=== PATIENT | male | born 2000 | race African-American/Black ===

== ENCOUNTER 2018-10-28 17:38 | Emergency (ER) | payer OTHER ==
[2018-10-28 17:50] VITALS: TEMP 98.6; BMI 25.8
--- NOTE | 2018-10-28 18:00 | PDOC ---
History of Present Illness - General History Source: Patient Exam Limitations: No Limitations - History of Present Illness Initial Comments: 10/28/18 18:05 Patient is a 18 year old male with no significant past medical history who presents to the ED with complaints of chest palpitations that began just prior to ED arrival. Patient reports vaping marijuana infused wax when he began to experiencing sudden chest palpitations. As per staff patient made his initial symptoms known but did state he was smoking, and was taken to the [facility] who then advised the patient to be taken to the ED for further evaluation. Patient reports vaping marijuana and tobacco on several occasions in the past but states he has never experienced this symptoms before. Denies chest pain, Sob. Denies nausea, vomiting. Denies fevers, chills. Denies contact with sick individuals, out of state travelling. Denies any other symptoms. Allergies: None Social history: Lives at [facility]. Current smoker. Current marijuana use. No alcohol use. Surgical history: None PMD: None Adult ROS CONSTITUTIONAL: Absent: Fever, Chills, Diaphoresis, Generalized Weakness, Malaise, Loss of Appetite HEENT: Absent: Rhinorrhea, Nasal Congestion, Throat Pain, Throat Swelling, Difficulty Swallowing, Mouth Swelling, Ear Pain, Eye Pain, Visual Changes CARDIOVASCULAR: +chest palpitations. Absent: Chest Pain, Syncope, Irregular Heart Rate, Lightheadedness, Peripheral Edema RESPIRATORY: Absent: Cough, Shortness of Breath, SOB with Exertion, Orthopnea, Wheezing, Stridor, Hemoptysis GASTROINTESTINAL: Absent: Abdominal pain, Abdominal Distension, Nausea, Vomiting, Diarrhea, Constipation, Melena, Hematochezia GENITOURINARY: Absent: Dysuria, Frequency, Urgency, Hesitancy, Flank Pain, Genital Pain MUSCULOSKELETAL: Absent: Myalgia, Arthralgia, Joint Swelling, Back pain, Neck Pain SKIN: Absent: Rash, Itching, PalloR HEMATOLOGIC/IMMUNOLOGIC: Absent: Easy Bleeding, Easy Bruising, Lymphadenopathy, Frequent infections ENDOCRINE: Absent: Unexplained Weight Gain, Unexplained Weight Loss, Heat Intolerance, Cold Intolerance NEUROLOGIC: Absent: Headache, Focal Weakness, Paresthesias, Vertigo, Lightheadedness, Unsteady Gait, Seizure, Mental Status Changes, Incontinence PSYCHIATRIC: Absent: Anxiety, Depression Adult PE GENERAL: The patient is awake, alert, and fully oriented, in no acute distress. HEAD: Normal with no signs of trauma. EYES: Pupils equal, round and reactive to light, extraocular movements intact, sclera anicteric, conjunctiva clear. ENT: Ears normal, nares patent, oropharynx clear without exudates. Moist mucous membranes. NECK: Normal range of motion, supple without lymphadenopathy, JVD, or masses. LUNGS: Breath sounds equal, clear to auscultation bilaterally. No wheezes, and no crackles. HEART: Regular rate and rhythm, normal S1 and S2 without murmur, rub or gallop. ABDOMEN: Soft, nontender, normoactive bowel sounds. No guarding, no rebound. No masses. EXTREMITIES: Normal range of motion, no edema. No clubbing or cyanosis. No cords , erythema, or tenderness. NEUROLOGICAL: Cranial nerves II through XII grossly intact. Normal speech, normal gait. PSYCH: Normal mood, normal affect. SKIN: Warm, Dry, normal turgor, no rashes or lesions noted. <Mikal Arredondo - Last Filed: 10/28/18 18:05> <Hermelindo Mukherjee - Last Filed: 10/28/18 18:25> - General Chief Complaint: Palpitations Stated Complaint: SENT FOR EVALUATION RAPID HEART BEAT WHILE SMOKIN Time Seen by Provider: 10/28/18 17:44 Past History <Mikal Arredondo - Last Filed: 10/28/18 18:05> - Past Medical History COPD: No Other medical history: DENIES - Immunization History Immunization Up to Date: Yes - Suicide/Smoking/Psychosocial Hx Smoking History: Current every day smoker Information on smoking cessation initiated: Yes Hx Alcohol Use: No Drug/Substance Use Hx: No Substance Use Type: Marijuana <Hermelindo Mukherjee - Last Filed: 10/28/18 18:25> - Past Medical History Allergies/Adverse Reactions: Allergies Allergy/AdvReac Type Severity Reaction Status Date / Time No Known Allergies Allergy Verified 10/28/18 17:50 Home Medications: Ambulatory Orders NK [No Known Home Medication] 10/28/18 *Physical Exam - Vital Signs Last Vital Signs Temp Pulse Resp BP Pulse Ox 98.6 F 96 H 16 122/67 100 10/28/18 17:40 10/28/18 17:40 10/28/18 17:40 10/28/18 18:02 10/28/18 17:40 <Mikal Arredondo - Last Filed: 10/28/18 18:05> - Vital Signs Last Vital Signs Temp Pulse Resp BP Pulse Ox 98.6 F 96 H 16 122/67 100 10/28/18 17:40 10/28/18 17:40 10/28/18 17:40 10/28/18 17:40 10/28/18 17:40 <Hermelindo Mukherjee - Last Filed: 10/28/18 18:25> Moderate Sedation - Procedure Monitoring Vital Signs: Procedure Monitoring Vital Signs Temperature 98.6 F 10/28/18 17:40 Pulse Rate 96 H 10/28/18 17:40 Respiratory Rate 16 10/28/18 17:40 Blood Pressure 122/67 10/28/18 18:02 O2 Sat by Pulse Oximetry (%) 100 10/28/18 17:40 <Mikal Arredondo - Last Filed: 10/28/18 18:05> - Procedure Monitoring Vital Signs: Procedure Monitoring Vital Signs Temperature 98.6 F 10/28/18 17:40 Pulse Rate 96 H 10/28/18 17:40 Respiratory Rate 16 10/28/18 17:40 Blood Pressure 122/67 10/28/18 17:40 O2 Sat by Pulse Oximetry (%) 100 10/28/18 17:40 <Hermelindo Mukherjee - Last Filed: 10/28/18 18:25> Heart Score/ECG Review - ECG Impressions Comment:: 10/28/18 18:19 Twelve-lead EKG shows normal sinus rhythm at a rate of 95 bpm. The axis is normal. The intervals are normal. There is no acute ST elevation or depression. Impression: Normal 12-lead EKG <Hermelindo Mukherjee - Last Filed: 10/28/18 18:25> Medical Decision Making - Medical Decision Making 10/28/18 18:21 18-year-old male presents complaining of palpitations while taping marijuana today. He states he was taping and felt sudden onset of his heart beating fast and jumping out of his chest. He was taken to the [facility] at the facility where he lives. His heart rate was noted to be in the 148-153 range. By the time of her arrival in the ED, his heart rate had decreased to 95. He denied any complaints. There was no chest pain, shortness of breath, or other symptoms. No dizziness or syncope. On examination, the lungs were clear. The cardiac exam was normal with normal S1 and S2 without murmurs. Extremities were warm and well perfused. Skin was without diaphoresis. Twelve-lead EKG showed normal sinus rhythm at 95 with no acute ischemic changes. Patient was observed in the ED and repeat vital signs were normal with a blood pressure of 115/55 and a heart rate of 82, with an oxygen saturation of 100% on room air. Impression: Palpitations in the setting of drug use. Spontaneously resolved. Currently asymptomatic. Plan: Discharged in custody of staff from the [facility]. <Hermelindo Mukherjee - Last Filed: 10/28/18 18:25> *DC/Admit/Observation/Transfer - Attestations Scribe Attestion: 10/28/18 18:06 Documentation prepared by Mikal Arredondo, acting as medical sales consultant for Hermelindo Mukherjee MD. <Mikal Arredondo - Last Filed: 10/28/18 18:05> - Discharge Dispostion Decision to Admit order: No - Attestations Physician Attestion: 10/28/18 18:25 The scribe's documentation has been prepared under my direction and personally reviewed by me in its entirety. I have confirmed that the note above accurately reflects all work, treatment, procedures, and medical decision- making performed by me. <Hermelindo Mukherjee - Last Filed: 10/28/18 18:25> Diagnosis at time of Disposition: Palpitations, Marijuana use - Discharge Dispostion Disposition: HOME Condition at time of disposition: Improved - Patient Instructions Printed Discharge Instructions: DI for Palpitations Additional Instructions: Today you were evaluated for heart palpitations in the setting of vaping marijuana. Drugs purchased on the street may be laced with other substances and can cause many different symptoms. It is recommended that you avoid drug use. Follow-up with the doctor at [facility] or return to the emergency department for any recurrent, severe, or progressive symptoms.
[2018-10-28 18:19] VITALS: BP 115/55; PULSE 82
--- NOTE | 2018-10-29 18:59 | EKG ---
Test Reason : Blood Pressure : / mmHG Vent. Rate : 095 BPM Atrial Rate : 095 BPM P-R Int : 162 ms QRS Dur : 086 ms QT Int : 370 ms P-R-T Axes : 065 086 053 degrees QTc Int : 464 ms NORMAL SINUS RHYTHM POSSIBLE LEFT ATRIAL ENLARGEMENT BORDERLINE ECG WHEN COMPARED WITH ECG OF 10-JAN-2017 09:03, NONSPECIFIC T WAVE ABNORMALITY NO LONGER EVIDENT IN LATERAL LEADS Confirmed by TRISH PINZON, LEIA ([id number]) on 10/29/2018 6:59:07 PM Referred By: DR ARCEO Confirmed By:LEIA CHAMBERS MD
== END 2018-10-28 18:29 | disposition home or self-care (01) ==
LOC: FER 17:38
DX: R00.2 Palpitations (principal); F17.210 Nicotine dependence, cigarettes, uncomplicated; F12.90 Cannabis use, unspecified, uncomplicated
CPT/HCPCS: 93005; 99283-25